=== PATIENT | male | born 1935 | race Caucasian/White ===

== ENCOUNTER 2016-12-05 09:51 | Inpatient (IN) | payer MEDICARE ==
[~2016-12-05] VITALS: Ht 165.1 cm; Wt 79.3 kg
[2016-12-05] MEDS ORDERED: [UNRECOGNIZED DRUG - OTHER] GT (10:44)
[2016-12-05] MEDS ORDERED: ASPIRIN81 M1 GT (10:45)
[2016-12-05] MEDS ORDERED: VITAMIN D-32000 UNI4 GT (10:47)
[2016-12-05] MEDS ORDERED: LOPRESSOR100 M1 GT (10:48)
[2016-12-05] MEDS ORDERED: MULTIVITAMINS1 EAC7 GT (10:49)
[2016-12-05] MEDS ORDERED: TUSSIN100 MG/52 GT (10:50)
[2016-12-05 10:53] LABS: ALB/GLOB RATIO 0.6 (0.8-2.0); ALBUMIN 2.6 g/dl (3.5-5.0); ALKALINE PHOSPHATASE 88 U/L (33-138); ALT/SGPT 19 U/L (12-78); ANION GAP 7 mmol/L (0-20); AST/SGOT 19 U/L (10-40); BILIRUBIN,TOTAL 0.3 mg/dl (0.0-1.5); BLOOD UREA NITROGEN 11 mg/dl (6-24); CHLORIDE 88 mmol/l (96-110); GLUCOSE 103 mg/dL (70-110); POTASSIUM 4.6 mmol/L (3.7-5.1); SODIUM 132 mmol/L (135-145); eGFR VALUE FOR BLACK >90 mL/Min
[2016-12-05] MEDS ORDERED: CETIRIZINE GT (10:53)
[2016-12-05] MEDS ORDERED: STIOLTO RESPIMAT4 GM INH (10:53)
[2016-12-05] MEDS ORDERED: ATORVASTATIN CA20 M1 GT (10:54)
[2016-12-05 10:55] LABS: CARBON DIOXIDE-VENOUS 42 mmol/L (22-32)
[2016-12-05] MEDS ORDERED: PRINIVIL5 M1 GT (10:55)
[2016-12-05] MEDS ORDERED: ACETAMINOPHEN1 EAC4 GT (10:57)
[2016-12-05] MEDS ORDERED: ALBUTEROL2.5 MG/3 M INH (11:07)
[2016-12-05 11:47] LABS: URINE BILIRUBIN NEGATIVE (NEG); URINE BLOOD SMALL (NEG); URINE GLUCOSE (UA) NEGATIVE (NEG); URINE KETONE NEGATIVE (NEG); URINE LEUKOCYTE ESTERASE NEGATIVE (NEG); URINE NITRITE NEGATIVE (NEG); URINE PROTEIN MODERATE (NEG)
[2016-12-05 11:50] LABS: URINE APPEARANCE HAZY; URINE COLOR YELLOW
[2016-12-05 11:53] LABS: BASO % 0.2 % (0-2); EOS % 0.8 % (0-7); EOSINOPHIL ABSOLUTE COUNT 0.1 tho/cmm (0.0-0.7); HCT-HEMATOCRIT 36.1 % (36.0-53.5); HGB-HEMOGLOBIN 11.3 gm/dl (13.5-17.0); IMMATURE GRANULOCYTES ABSOLUTE 0.05 tho/cmm (0-0.03); IMMATURE GRANULOCYTES PERCENT 0.3 % (0-0.3); LYMPH % 7.6 % (20-45); LYMPH ABSOLUTE COUNT 1.2 tho/cmm (0.8-4.5); MCH (MEAN CORPUSCULAR HGB) 29.4 pg (28.0-32.0); MCHC MEAN CORPUSCULAR HGB CONC 31.3 % (32.0-36.0); MCV (MEAN CELL VOLUME) 93.8 fl (82.0-96.0); MEAN PLATELET VOLUME 10.1 cmc (9.4-12.4); MONO % 10.6 % (0-12); MONOCYTE ABSOLUTE COUNT 1.6 tho/cmm (0.0-1.2); NEUTROPHIL ABSOLUTE COUNT 12.4 tho/cmm (1.6-8.0); NEUTROPHIL-AUTOMATED 12.4 tho/cmm (1.6-8.0); NEUTROPHILS % 80.5 % (40-80); PLATELET COUNT 297 tho/cmm (150-450); RED BLOOD COUNT 3.85 mil/cmm (4.40-5.70); RED CELL DISTRIBUTION WIDTH 15.6 % (12.4-16.4); WHITE BLOOD COUNT 15.4 tho/cmm (4.0-10.0)
[2016-12-05 12:00] LABS: URINE AMORPHOUS 3+; URINE EPITHELIAL CELLS RARE /[HPF] (0-10); URINE MUCUS 1+; URINE WBC RARE /[HPF] (0-5)
[2016-12-05 17:55] LABS: ABG CO2 ARTERIAL 39 mmol/L (21-27); ARTERIAL BLD GAS O2 SATURATION 97 % (95-98); ARTERIAL BLOOD GAS PCO2 60 mmHg (32-45); ARTERIAL PO2 97 mmHg (70-100); BICARBONATE 37 mmol/L (21-28); BLOOD GAS BASE EXCESS 11 mM/L (-/+3)
[2016-12-06 06:15] LABS: BASO % 0.2 % (0-2); EOS % 1.3 % (0-7); EOSINOPHIL ABSOLUTE COUNT 0.1 tho/cmm (0.0-0.7); HCT-HEMATOCRIT 34.7 % (36.0-53.5); HGB-HEMOGLOBIN 10.6 gm/dl (13.5-17.0); IMMATURE GRANULOCYTES ABSOLUTE 0.03 tho/cmm (0-0.03); IMMATURE GRANULOCYTES PERCENT 0.3 % (0-0.3); LYMPH % 6.2 % (20-45); LYMPH ABSOLUTE COUNT 0.6 tho/cmm (0.8-4.5); MCH (MEAN CORPUSCULAR HGB) 28.9 pg (28.0-32.0); MCHC MEAN CORPUSCULAR HGB CONC 30.5 % (32.0-36.0); MCV (MEAN CELL VOLUME) 94.6 fl (82.0-96.0); MEAN PLATELET VOLUME 9.4 cmc (9.4-12.4); MONO % 14.4 % (0-12); MONOCYTE ABSOLUTE COUNT 1.5 tho/cmm (0.0-1.2); NEUTROPHIL ABSOLUTE COUNT 7.9 tho/cmm (1.6-8.0); NEUTROPHIL-AUTOMATED 7.9 tho/cmm (1.6-8.0); NEUTROPHILS % 77.6 % (40-80); PLATELET COUNT 248 tho/cmm (150-450); RED BLOOD COUNT 3.67 mil/cmm (4.40-5.70); RED CELL DISTRIBUTION WIDTH 15.5 % (12.4-16.4); WHITE BLOOD COUNT 10.2 tho/cmm (4.0-10.0)
[2016-12-06 06:27] LABS: ANION GAP 8 mmol/L (0-20); BLOOD UREA NITROGEN 9 mg/dl (6-24); CALCIUM 8.6 mg/dl (8.5-10.5); CARBON DIOXIDE-VENOUS 38 mmol/L (22-32); CHLORIDE 93 mmol/l (96-110); GLUCOSE 98 mg/dL (70-110); POTASSIUM 4.2 mmol/L (3.7-5.1); SODIUM 135 mmol/L (135-145); eGFR VALUE FOR BLACK >90 mL/Min
[2016-12-06 17:20] LABS: ABG CO2 ARTERIAL 33 mmol/L (21-27); ARTERIAL BLD GAS O2 SATURATION 97 % (95-98); ARTERIAL PO2 100 mmHg (70-100); BICARBONATE 36 mmol/L (21-28); BLOOD GAS BASE EXCESS 7 mM/L (-/+3)
[2016-12-06 17:22] LABS: ARTERIAL BLOOD GAS PCO2 74 mmHg (32-45)
[2016-12-06 20:10] LABS: ABG CO2 ARTERIAL 35 mmol/L (21-27); ARTERIAL BLD GAS O2 SATURATION 91 % (95-98); BICARBONATE 38 mmol/L (21-28); BLOOD GAS BASE EXCESS 9 mM/L (-/+3)
[2016-12-06 20:14] LABS: ARTERIAL PO2 69 mmHg (70-100)
[2016-12-06 20:19] LABS: ARTERIAL BLOOD GAS PCO2 79 mmHg (32-45)
[2016-12-07 04:13] LABS: ARTERIAL BLD GAS O2 SATURATION 96 % (95-98); BICARBONATE 39 mmol/L (21-28); BLOOD GAS BASE EXCESS 10 mM/L (-/+3); PH 7.28 Units (7.35-7.45)
[2016-12-07 04:15] LABS: ARTERIAL PO2 89 mmHg (70-100)
[2016-12-07 04:18] LABS: ABG CO2 ARTERIAL 41 mmol/L (21-27); ARTERIAL BLOOD GAS PCO2 85 mmHg (32-45)
[2016-12-07 05:25] LABS: BASO % 0.4 % (0-2); EOS % 1.1 % (0-7); EOSINOPHIL ABSOLUTE COUNT 0.1 tho/cmm (0.0-0.7); HCT-HEMATOCRIT 32.9 % (36.0-53.5); IMMATURE GRANULOCYTES ABSOLUTE 0.02 tho/cmm (0-0.03); IMMATURE GRANULOCYTES PERCENT 0.2 % (0-0.3); LYMPH % 6.5 % (20-45); LYMPH ABSOLUTE COUNT 0.5 tho/cmm (0.8-4.5); MCH (MEAN CORPUSCULAR HGB) 29.1 pg (28.0-32.0); MCHC MEAN CORPUSCULAR HGB CONC 30.4 % (32.0-36.0); MCV (MEAN CELL VOLUME) 95.6 fl (82.0-96.0); MEAN PLATELET VOLUME 9.5 cmc (9.4-12.4); MONO % 17.3 % (0-12); MONOCYTE ABSOLUTE COUNT 1.4 tho/cmm (0.0-1.2); NEUTROPHIL ABSOLUTE COUNT 6.2 tho/cmm (1.6-8.0); NEUTROPHIL-AUTOMATED 6.2 tho/cmm (1.6-8.0); NEUTROPHILS % 74.5 % (40-80); PLATELET COUNT 278 tho/cmm (150-450); RED BLOOD COUNT 3.44 mil/cmm (4.40-5.70); RED CELL DISTRIBUTION WIDTH 15.5 % (12.4-16.4); WHITE BLOOD COUNT 8.3 tho/cmm (4.0-10.0)
[2016-12-07 05:43] LABS: ANION GAP 6 mmol/L (0-20); BLOOD UREA NITROGEN 10 mg/dl (6-24); C-REACTIVE PROTEIN 5.3 mg/dl (0-0.9); CALCIUM 8.6 mg/dl (8.5-10.5); CARBON DIOXIDE-VENOUS 40 mmol/L (22-32); CHLORIDE 92 mmol/l (96-110); CREATININE 0.32 mg/dl (0.60-1.30); GLUCOSE 99 mg/dL (70-110); POTASSIUM 4.2 mmol/L (3.7-5.1); SODIUM 134 mmol/L (135-145); eGFR VALUE FOR BLACK >90 mL/Min
[2016-12-07 05:56] LABS: PROCALCITONIN <0.05 ng/ml (0.05-0.09)
[2016-12-07 07:09] LABS: ARTERIAL BLD GAS O2 SATURATION 97 % (95-98); ARTERIAL PO2 82 mmHg (70-100); BICARBONATE 38 mmol/L (21-28); BLOOD GAS BASE EXCESS 10 mM/L (-/+3); PH 7.32 Units (7.35-7.45)
[2016-12-07 07:12] LABS: ABG CO2 ARTERIAL 40 mmol/L (21-27); ARTERIAL BLOOD GAS PCO2 75 mmHg (32-45)
[2016-12-07 12:53] LABS: INR 1.1 INR (0.9-1.1); PROTHROMBIN TIME 12.5 SECONDS (9.0-13.6)
[2016-12-07 16:49] LABS: ABG CO2 ARTERIAL 38 mmol/L (21-27); ARTERIAL BLD GAS O2 SATURATION 99 % (95-98); ARTERIAL BLOOD GAS PCO2 47 mmHg (32-45); ARTERIAL PO2 94 mmHg (70-100); BICARBONATE 37 mmol/L (21-28); BLOOD GAS BASE EXCESS 12 mM/L (-/+3); PH 7.51 Units (7.35-7.45)
[2016-12-08 00:38] LABS: BASO % 0.3 % (0-2); EOS % 1.5 % (0-7); EOSINOPHIL ABSOLUTE COUNT 0.1 tho/cmm (0.0-0.7); HCT-HEMATOCRIT 27.8 % (36.0-53.5); HGB-HEMOGLOBIN 8.6 gm/dl (13.5-17.0); IMMATURE GRANULOCYTES ABSOLUTE 0.01 tho/cmm (0-0.03); IMMATURE GRANULOCYTES PERCENT 0.2 % (0-0.3); LYMPH % 11.1 % (20-45); LYMPH ABSOLUTE COUNT 0.7 tho/cmm (0.8-4.5); MCH (MEAN CORPUSCULAR HGB) 29.3 pg (28.0-32.0); MCHC MEAN CORPUSCULAR HGB CONC 30.9 % (32.0-36.0); MCV (MEAN CELL VOLUME) 94.6 fl (82.0-96.0); MEAN PLATELET VOLUME 9.1 cmc (9.4-12.4); MONO % 19.7 % (0-12); MONOCYTE ABSOLUTE COUNT 1.3 tho/cmm (0.0-1.2); NEUTROPHIL ABSOLUTE COUNT 4.3 tho/cmm (1.6-8.0); NEUTROPHIL-AUTOMATED 4.3 tho/cmm (1.6-8.0); NEUTROPHILS % 67.2 % (40-80); PLATELET COUNT 237 tho/cmm (150-450); RED BLOOD COUNT 2.94 mil/cmm (4.40-5.70); RED CELL DISTRIBUTION WIDTH 15.6 % (12.4-16.4); WHITE BLOOD COUNT 6.5 tho/cmm (4.0-10.0)
[2016-12-08 00:51] LABS: ANION GAP 8 mmol/L (0-20); BLOOD UREA NITROGEN 10 mg/dl (6-24); CARBON DIOXIDE-VENOUS 37 mmol/L (22-32); CHLORIDE 97 mmol/l (96-110); CREATININE 0.44 mg/dl (0.60-1.30); POTASSIUM 4.4 mmol/L (3.7-5.1); SODIUM 138 mmol/L (135-145); eGFR VALUE FOR BLACK >90 mL/Min
[2016-12-08 00:55] LABS: GLUCOSE 68 mg/dL (70-110)
[2016-12-08 04:11] LABS: BASO % 0.3 % (0-2); EOS % 1.8 % (0-7); EOSINOPHIL ABSOLUTE COUNT 0.1 tho/cmm (0.0-0.7); HCT-HEMATOCRIT 29.5 % (36.0-53.5); IMMATURE GRANULOCYTES ABSOLUTE 0.01 tho/cmm (0-0.03); IMMATURE GRANULOCYTES PERCENT 0.1 % (0-0.3); LYMPH % 15.4 % (20-45); MCH (MEAN CORPUSCULAR HGB) 28.8 pg (28.0-32.0); MCHC MEAN CORPUSCULAR HGB CONC 30.5 % (32.0-36.0); MCV (MEAN CELL VOLUME) 94.2 fl (82.0-96.0); MEAN PLATELET VOLUME 9.1 cmc (9.4-12.4); MONO % 14.5 % (0-12); NEUTROPHIL ABSOLUTE COUNT 4.6 tho/cmm (1.6-8.0); NEUTROPHIL-AUTOMATED 4.6 tho/cmm (1.6-8.0); NEUTROPHILS % 67.9 % (40-80); PLATELET COUNT 248 tho/cmm (150-450); RED BLOOD COUNT 3.13 mil/cmm (4.40-5.70); RED CELL DISTRIBUTION WIDTH 15.7 % (12.4-16.4); WHITE BLOOD COUNT 6.7 tho/cmm (4.0-10.0)
[2016-12-08 04:23] LABS: ANION GAP 7 mmol/L (0-20); BLOOD UREA NITROGEN 9 mg/dl (6-24); CALCIUM 8.2 mg/dl (8.5-10.5); CARBON DIOXIDE-VENOUS 36 mmol/L (22-32); CHLORIDE 99 mmol/l (96-110); CREATININE 0.45 mg/dl (0.60-1.30); GLUCOSE 82 mg/dL (70-110); POTASSIUM 4.2 mmol/L (3.7-5.1); SODIUM 138 mmol/L (135-145); eGFR VALUE FOR BLACK >90 mL/Min
[2016-12-08 04:24] LABS: INR 1.1 INR (0.9-1.1); PROTHROMBIN TIME 12.7 SECONDS (9.0-13.6)
[2016-12-08 04:27] LABS: ABG CO2 ARTERIAL 35 mmol/L (21-27); ARTERIAL BLD GAS O2 SATURATION 99 % (95-98); ARTERIAL BLOOD GAS PCO2 56 mmHg (32-45); BICARBONATE 34 mmol/L (21-28); BLOOD GAS BASE EXCESS 8 mM/L (-/+3)
[2016-12-08 04:28] LABS: ARTERIAL PO2 154 mmHg (70-100)
[2016-12-08 04:48] LABS: PROCALCITONIN 0.08 ng/ml (0.05-0.09)
[2016-12-09 01:25] LABS: URINE BILIRUBIN NEGATIVE (NEG); URINE BLOOD NEGATIVE (NEG); URINE GLUCOSE (UA) NEGATIVE (NEG); URINE KETONE NEGATIVE (NEG); URINE LEUKOCYTE ESTERASE NEGATIVE (NEG); URINE NITRITE NEGATIVE (NEG); URINE PROTEIN NEGATIVE (NEG); URINE SPECIFIC GRAVITY 1.015 (1.003-1.030)
[2016-12-09 01:27] LABS: URINE APPEARANCE CLEAR; URINE COLOR YELLOW
[2016-12-09 05:04] LABS: ABG CO2 ARTERIAL 34 mmol/L (21-27); ARTERIAL BLD GAS O2 SATURATION 98 % (95-98); ARTERIAL BLOOD GAS PCO2 44 mmHg (32-45); ARTERIAL PO2 91 mmHg (70-100); BICARBONATE 33 mmol/L (21-28); BLOOD GAS BASE EXCESS 8 mM/L (-/+3); PH 7.48 Units (7.35-7.45)
[2016-12-09 05:15] LABS: BASO % 0.3 % (0-2); EOS % 1.8 % (0-7); EOSINOPHIL ABSOLUTE COUNT 0.2 tho/cmm (0.0-0.7); HCT-HEMATOCRIT 29.1 % (36.0-53.5); HGB-HEMOGLOBIN 9.2 gm/dl (13.5-17.0); IMMATURE GRANULOCYTES ABSOLUTE 0.02 tho/cmm (0-0.03); IMMATURE GRANULOCYTES PERCENT 0.2 % (0-0.3); LYMPH % 9.2 % (20-45); LYMPH ABSOLUTE COUNT 0.9 tho/cmm (0.8-4.5); MCH (MEAN CORPUSCULAR HGB) 29.1 pg (28.0-32.0); MCHC MEAN CORPUSCULAR HGB CONC 31.6 % (32.0-36.0); MCV (MEAN CELL VOLUME) 92.1 fl (82.0-96.0); MEAN PLATELET VOLUME 9.3 cmc (9.4-12.4); MONO % 9.5 % (0-12); NEUTROPHIL ABSOLUTE COUNT 7.9 tho/cmm (1.6-8.0); NEUTROPHIL-AUTOMATED 7.9 tho/cmm (1.6-8.0); PLATELET COUNT 283 tho/cmm (150-450); RED BLOOD COUNT 3.16 mil/cmm (4.40-5.70); RED CELL DISTRIBUTION WIDTH 16.1 % (12.4-16.4)
[2016-12-09 05:17] LABS: ALB/GLOB RATIO 0.5 (0.8-2.0); ALKALINE PHOSPHATASE 63 U/L (33-138); ALT/SGPT 13 U/L (12-78); ANION GAP 10 mmol/L (0-20); AST/SGOT 11 U/L (10-40); BILIRUBIN,TOTAL 0.3 mg/dl (0.0-1.5); BLOOD UREA NITROGEN 11 mg/dl (6-24); CALCIUM 8.2 mg/dl (8.5-10.5); CARBON DIOXIDE-VENOUS 34 mmol/L (22-32); CHLORIDE 97 mmol/l (96-110); CREATININE 0.56 mg/dl (0.60-1.30); MAGNESIUM 1.9 mg/dl (1.8-2.6); POTASSIUM 3.6 mmol/L (3.7-5.1); SODIUM 137 mmol/L (135-145); eGFR VALUE FOR BLACK >90 mL/Min
[2016-12-09 05:28] LABS: GLUCOSE 131 mg/dL (70-110)
[2016-12-10 05:42] LABS: MAGNESIUM 1.7 mg/dl (1.8-2.6)
[2016-12-10 07:39] LABS: ANION GAP 12 mmol/L (0-20); BLOOD UREA NITROGEN 10 mg/dl (6-24); CALCIUM 8.1 mg/dl (8.5-10.5); CARBON DIOXIDE-VENOUS 30 mmol/L (22-32); CHLORIDE 99 mmol/l (96-110); CREATININE 0.52 mg/dl (0.60-1.30); GLUCOSE 106 mg/dL (70-110); POTASSIUM 3.6 mmol/L (3.7-5.1); SODIUM 137 mmol/L (135-145); eGFR VALUE FOR BLACK >90 mL/Min
[2016-12-11 04:21] LABS: BASO % 0.5 % (0-2); EOSINOPHIL ABSOLUTE COUNT 0.2 tho/cmm (0.0-0.7); HGB-HEMOGLOBIN 7.7 gm/dl (13.5-17.0); IMMATURE GRANULOCYTES ABSOLUTE 0.01 tho/cmm (0-0.03); IMMATURE GRANULOCYTES PERCENT 0.2 % (0-0.3); LYMPH % 9.6 % (20-45); LYMPH ABSOLUTE COUNT 0.6 tho/cmm (0.8-4.5); MCH (MEAN CORPUSCULAR HGB) 29.1 pg (28.0-32.0); MCHC MEAN CORPUSCULAR HGB CONC 32.4 % (32.0-36.0); MCV (MEAN CELL VOLUME) 89.8 fl (82.0-96.0); MEAN PLATELET VOLUME 8.9 cmc (9.4-12.4); MONO % 12.9 % (0-12); MONOCYTE ABSOLUTE COUNT 0.8 tho/cmm (0.0-1.2); NEUTROPHIL ABSOLUTE COUNT 4.7 tho/cmm (1.6-8.0); NEUTROPHIL-AUTOMATED 4.7 tho/cmm (1.6-8.0); NEUTROPHILS % 73.8 % (40-80); PLATELET COUNT 241 tho/cmm (150-450); RED BLOOD COUNT 2.65 mil/cmm (4.40-5.70); RED CELL DISTRIBUTION WIDTH 16.3 % (12.4-16.4); WHITE BLOOD COUNT 6.4 tho/cmm (4.0-10.0)
[2016-12-11 04:23] LABS: HCT-HEMATOCRIT 23.8 % (36.0-53.5)
[2016-12-11 04:32] LABS: ANION GAP 11 mmol/L (0-20); BLOOD UREA NITROGEN 8 mg/dl (6-24); CALCIUM 7.9 mg/dl (8.5-10.5); CARBON DIOXIDE-VENOUS 29 mmol/L (22-32); CHLORIDE 103 mmol/l (96-110); CREATININE 0.52 mg/dl (0.60-1.30); GLUCOSE 78 mg/dL (70-110); MAGNESIUM 1.8 mg/dl (1.8-2.6); POTASSIUM 3.6 mmol/L (3.7-5.1); SODIUM 139 mmol/L (135-145); eGFR VALUE FOR BLACK >90 mL/Min
[2016-12-12 05:46] LABS: BASO % 0.5 % (0-2); EOS % 3.4 % (0-7); EOSINOPHIL ABSOLUTE COUNT 0.2 tho/cmm (0.0-0.7); HGB-HEMOGLOBIN 8.3 gm/dl (13.5-17.0); IMMATURE GRANULOCYTES ABSOLUTE 0.01 tho/cmm (0-0.03); IMMATURE GRANULOCYTES PERCENT 0.2 % (0-0.3); LYMPH % 9.4 % (20-45); LYMPH ABSOLUTE COUNT 0.6 tho/cmm (0.8-4.5); MCH (MEAN CORPUSCULAR HGB) 28.6 pg (28.0-32.0); MCHC MEAN CORPUSCULAR HGB CONC 31.9 % (32.0-36.0); MCV (MEAN CELL VOLUME) 89.7 fl (82.0-96.0); MEAN PLATELET VOLUME 9.2 cmc (9.4-12.4); MONOCYTE ABSOLUTE COUNT 0.8 tho/cmm (0.0-1.2); NEUTROPHIL ABSOLUTE COUNT 4.9 tho/cmm (1.6-8.0); NEUTROPHIL-AUTOMATED 4.9 tho/cmm (1.6-8.0); NEUTROPHILS % 74.5 % (40-80); PLATELET COUNT 286 tho/cmm (150-450); RED CELL DISTRIBUTION WIDTH 16.2 % (12.4-16.4); WHITE BLOOD COUNT 6.5 tho/cmm (4.0-10.0)
[2016-12-13 05:22] LABS: ALB/GLOB RATIO 0.5 (0.8-2.0); ALKALINE PHOSPHATASE 59 U/L (33-138); ALT/SGPT 11 U/L (12-78); ANION GAP 10 mmol/L (0-20); AST/SGOT 13 U/L (10-40); BILIRUBIN,TOTAL 0.2 mg/dl (0.0-1.5); BLOOD UREA NITROGEN 8 mg/dl (6-24); CALCIUM 8.1 mg/dl (8.5-10.5); CARBON DIOXIDE-VENOUS 26 mmol/L (22-32); CHLORIDE 106 mmol/l (96-110); CREATININE 0.42 mg/dl (0.60-1.30); GLUCOSE 110 mg/dL (70-110); MAGNESIUM 1.9 mg/dl (1.8-2.6); PHOSPHOROUS 2.7 mg/dl (2.5-4.9); POTASSIUM 3.3 mmol/L (3.7-5.1); PREALBUMIN 8.3 mg/dl (20.0-40.0); SODIUM 139 mmol/L (135-145); eGFR VALUE FOR BLACK >90 mL/Min
[2016-12-13 10:47] LABS: BASO % 0.3 % (0-2); EOS % 2.7 % (0-7); EOSINOPHIL ABSOLUTE COUNT 0.2 tho/cmm (0.0-0.7); HCT-HEMATOCRIT 31.6 % (36.0-53.5); IMMATURE GRANULOCYTES ABSOLUTE 0.01 tho/cmm (0-0.03); IMMATURE GRANULOCYTES PERCENT 0.2 % (0-0.3); LYMPH % 8.7 % (20-45); LYMPH ABSOLUTE COUNT 0.6 tho/cmm (0.8-4.5); MCH (MEAN CORPUSCULAR HGB) 28.7 pg (28.0-32.0); MCHC MEAN CORPUSCULAR HGB CONC 31.6 % (32.0-36.0); MCV (MEAN CELL VOLUME) 90.5 fl (82.0-96.0); MEAN PLATELET VOLUME 9.3 cmc (9.4-12.4); MONO % 8.4 % (0-12); MONOCYTE ABSOLUTE COUNT 0.6 tho/cmm (0.0-1.2); NEUTROPHIL ABSOLUTE COUNT 5.2 tho/cmm (1.6-8.0); NEUTROPHIL-AUTOMATED 5.2 tho/cmm (1.6-8.0); NEUTROPHILS % 79.7 % (40-80); PLATELET COUNT 364 tho/cmm (150-450); RED BLOOD COUNT 3.49 mil/cmm (4.40-5.70); RED CELL DISTRIBUTION WIDTH 16.2 % (12.4-16.4); WHITE BLOOD COUNT 6.6 tho/cmm (4.0-10.0)
[2016-12-13 10:49] LABS: INR 1.1 INR (0.9-1.1)
[2016-12-13 11:48] LABS: URINE APPEARANCE HAZY; URINE BILIRUBIN NEGATIVE (NEG); URINE BLOOD MODERATE (NEG); URINE COLOR YELLOW; URINE GLUCOSE (UA) NEGATIVE (NEG); URINE KETONE NEGATIVE (NEG); URINE LEUKOCYTE ESTERASE POSITIVE (NEG); URINE NITRITE NEGATIVE (NEG); URINE PROTEIN MODERATE (NEG); URINE SPECIFIC GRAVITY 1.025 (1.003-1.030)
[2016-12-13 12:03] LABS: URINE WBC 15-20 /[HPF] (0-5)
[2016-12-13 12:05] LABS: URINE MUCUS 1+
[2016-12-13 13:25] LABS: BASO % 0.2 % (0-2); EOS % 2.3 % (0-7); EOSINOPHIL ABSOLUTE COUNT 0.2 tho/cmm (0.0-0.7); HCT-HEMATOCRIT 30.3 % (36.0-53.5); HGB-HEMOGLOBIN 9.9 gm/dl (13.5-17.0); IMMATURE GRANULOCYTES ABSOLUTE 0.02 tho/cmm (0-0.03); IMMATURE GRANULOCYTES PERCENT 0.2 % (0-0.3); LYMPH ABSOLUTE COUNT 0.8 tho/cmm (0.8-4.5); MCH (MEAN CORPUSCULAR HGB) 29.1 pg (28.0-32.0); MCHC MEAN CORPUSCULAR HGB CONC 32.7 % (32.0-36.0); MCV (MEAN CELL VOLUME) 89.1 fl (82.0-96.0); MEAN PLATELET VOLUME 9.4 cmc (9.4-12.4); MONO % 9.4 % (0-12); MONOCYTE ABSOLUTE COUNT 0.8 tho/cmm (0.0-1.2); NEUTROPHILS % 78.9 % (40-80); PLATELET COUNT 406 tho/cmm (150-450); WHITE BLOOD COUNT 8.9 tho/cmm (4.0-10.0)
[2016-12-13 13:27] LABS: INR 1.1 INR (0.9-1.1)
[2016-12-13 13:28] LABS: ANION GAP 10 mmol/L (0-20); BLOOD UREA NITROGEN 10 mg/dl (6-24); CALCIUM 8.5 mg/dl (8.5-10.5); CARBON DIOXIDE-VENOUS 25 mmol/L (22-32); CHLORIDE 104 mmol/l (96-110); CREATININE 0.55 mg/dl (0.60-1.30); GLUCOSE 135 mg/dL (70-110); POTASSIUM 3.4 mmol/L (3.7-5.1); SODIUM 136 mmol/L (135-145); eGFR VALUE FOR BLACK >90 mL/Min
[2016-12-13 13:30] LABS: PROCALCITONIN 0.09 ng/ml (0.05-0.09)
[2016-12-14 04:59] LABS: ANION GAP 8 mmol/L (0-20); BLOOD UREA NITROGEN 11 mg/dl (6-24); CALCIUM 8.1 mg/dl (8.5-10.5); CARBON DIOXIDE-VENOUS 26 mmol/L (22-32); CHLORIDE 106 mmol/l (96-110); CREATININE 0.45 mg/dl (0.60-1.30); GLUCOSE 120 mg/dL (70-110); POTASSIUM 3.4 mmol/L (3.7-5.1); SODIUM 137 mmol/L (135-145); eGFR VALUE FOR BLACK >90 mL/Min
[2016-12-15 05:34] LABS: ANION GAP 12 mmol/L (0-20); BLOOD UREA NITROGEN 13 mg/dl (6-24); CARBON DIOXIDE-VENOUS 28 mmol/L (22-32); CHLORIDE 104 mmol/l (96-110); CREATININE 0.41 mg/dl (0.60-1.30); GLUCOSE 101 mg/dL (70-110); POTASSIUM 3.6 mmol/L (3.7-5.1); SODIUM 140 mmol/L (135-145); eGFR VALUE FOR BLACK >90 mL/Min
[2016-12-16 05:40] LABS: ANION GAP 11 mmol/L (0-20); BLOOD UREA NITROGEN 13 mg/dl (6-24); CALCIUM 7.7 mg/dl (8.5-10.5); CARBON DIOXIDE-VENOUS 28 mmol/L (22-32); CHLORIDE 106 mmol/l (96-110); CREATININE 0.42 mg/dl (0.60-1.30); GLUCOSE 82 mg/dL (70-110); MAGNESIUM 1.7 mg/dl (1.8-2.6); PHOSPHOROUS 3.3 mg/dl (2.5-4.9); POTASSIUM 3.6 mmol/L (3.7-5.1); SODIUM 141 mmol/L (135-145); eGFR VALUE FOR BLACK >90 mL/Min
[2016-12-17 04:20] LABS: ABG CO2 ARTERIAL 27 mmol/L (21-27); ARTERIAL BLD GAS O2 SATURATION 96 % (95-98); ARTERIAL BLOOD GAS PCO2 38 mmHg (32-45); ARTERIAL PO2 86 mmHg (70-100); BICARBONATE 26 mmol/L (21-28); BLOOD GAS BASE EXCESS 3 mM/L (-/+3); PH 7.45 Units (7.35-7.45)
[2016-12-17 05:47] LABS: BASO % 0.9 % (0-2); BASO ABSOLUTE COUNT 0.1 tho/cmm (0.0-0.2); EOS % 7.4 % (0-7); EOSINOPHIL ABSOLUTE COUNT 0.5 tho/cmm (0.0-0.7); HCT-HEMATOCRIT 26.3 % (36.0-53.5); LYMPH % 16.1 % (20-45); LYMPH ABSOLUTE COUNT 1.1 tho/cmm (0.8-4.5); MCH (MEAN CORPUSCULAR HGB) 28.2 pg (28.0-32.0); MCHC MEAN CORPUSCULAR HGB CONC 30.4 % (32.0-36.0); MCV (MEAN CELL VOLUME) 92.6 fl (82.0-96.0); MEAN PLATELET VOLUME 9.3 cmc (9.4-12.4); MONO % 14.7 % (0-12); NEUTROPHILS % 60.9 % (40-80); PLATELET COUNT 404 tho/cmm (150-450); RED BLOOD COUNT 2.84 mil/cmm (4.40-5.70); RED CELL DISTRIBUTION WIDTH 15.8 % (12.4-16.4); WHITE BLOOD COUNT 6.6 tho/cmm (4.0-10.0)
[2016-12-17 05:53] LABS: ANION GAP 10 mmol/L (0-20); BLOOD UREA NITROGEN 13 mg/dl (6-24); CARBON DIOXIDE-VENOUS 28 mmol/L (22-32); CHLORIDE 104 mmol/l (96-110); CREATININE 0.39 mg/dl (0.60-1.30); GLUCOSE 109 mg/dL (70-110); POTASSIUM 3.3 mmol/L (3.7-5.1); SODIUM 139 mmol/L (135-145); eGFR VALUE FOR BLACK >90 mL/Min
[2016-12-18 05:46] LABS: ANION GAP 9 mmol/L (0-20); BLOOD UREA NITROGEN 15 mg/dl (6-24); CALCIUM 8.1 mg/dl (8.5-10.5); CARBON DIOXIDE-VENOUS 29 mmol/L (22-32); CHLORIDE 102 mmol/l (96-110); CREATININE 0.48 mg/dl (0.60-1.30); GLUCOSE 115 mg/dL (70-110); POTASSIUM 3.1 mmol/L (3.7-5.1); SODIUM 137 mmol/L (135-145); eGFR VALUE FOR BLACK >90 mL/Min
[2016-12-19 04:53] LABS: BASO % 0.6 % (0-2); EOS % 6.1 % (0-7); EOSINOPHIL ABSOLUTE COUNT 0.4 tho/cmm (0.0-0.7); HCT-HEMATOCRIT 25.9 % (36.0-53.5); HGB-HEMOGLOBIN 8.3 gm/dl (13.5-17.0); IMMATURE GRANULOCYTES ABSOLUTE 0.02 tho/cmm (0-0.03); IMMATURE GRANULOCYTES PERCENT 0.3 % (0-0.3); LYMPH % 17.2 % (20-45); LYMPH ABSOLUTE COUNT 1.1 tho/cmm (0.8-4.5); MCH (MEAN CORPUSCULAR HGB) 28.9 pg (28.0-32.0); MCV (MEAN CELL VOLUME) 90.2 fl (82.0-96.0); MONO % 15.9 % (0-12); NEUTROPHIL ABSOLUTE COUNT 3.7 tho/cmm (1.6-8.0); NEUTROPHIL-AUTOMATED 3.7 tho/cmm (1.6-8.0); NEUTROPHILS % 59.9 % (40-80); PLATELET COUNT 361 tho/cmm (150-450); RED BLOOD COUNT 2.87 mil/cmm (4.40-5.70); WHITE BLOOD COUNT 6.2 tho/cmm (4.0-10.0)
[2016-12-19 05:07] LABS: ANION GAP 7 mmol/L (0-20); BLOOD UREA NITROGEN 19 mg/dl (6-24); CALCIUM 8.3 mg/dl (8.5-10.5); CARBON DIOXIDE-VENOUS 31 mmol/L (22-32); CHLORIDE 102 mmol/l (96-110); CREATININE 0.52 mg/dl (0.60-1.30); GLUCOSE 130 mg/dL (70-110); POTASSIUM 3.5 mmol/L (3.7-5.1); SODIUM 136 mmol/L (135-145); eGFR VALUE FOR BLACK >90 mL/Min
[2016-12-20 05:35] LABS: ANION GAP 9 mmol/L (0-20); BLOOD UREA NITROGEN 18 mg/dl (6-24); CALCIUM 8.3 mg/dl (8.5-10.5); CARBON DIOXIDE-VENOUS 30 mmol/L (22-32); CHLORIDE 103 mmol/l (96-110); CREATININE 0.54 mg/dl (0.60-1.30); GLUCOSE 98 mg/dL (70-110); SODIUM 138 mmol/L (135-145); eGFR VALUE FOR BLACK >90 mL/Min
[2016-12-21 04:17] LABS: ABG CO2 ARTERIAL 31 mmol/L (21-27); ARTERIAL BLD GAS O2 SATURATION 96 % (95-98); ARTERIAL BLOOD GAS PCO2 41 mmHg (32-45); ARTERIAL PO2 80 mmHg (70-100); BICARBONATE 30 mmol/L (21-28); BLOOD GAS BASE EXCESS 6 mM/L (-/+3); PH 7.48 Units (7.35-7.45)
[2016-12-21 05:28] LABS: BASO ABSOLUTE COUNT 0.1 tho/cmm (0.0-0.2); EOS % 4.2 % (0-7); EOSINOPHIL ABSOLUTE COUNT 0.3 tho/cmm (0.0-0.7); HCT-HEMATOCRIT 26.2 % (36.0-53.5); HGB-HEMOGLOBIN 8.2 gm/dl (13.5-17.0); IMMATURE GRANULOCYTES ABSOLUTE 0.02 tho/cmm (0-0.03); IMMATURE GRANULOCYTES PERCENT 0.3 % (0-0.3); LYMPH % 15.9 % (20-45); LYMPH ABSOLUTE COUNT 1.1 tho/cmm (0.8-4.5); MCH (MEAN CORPUSCULAR HGB) 28.6 pg (28.0-32.0); MCHC MEAN CORPUSCULAR HGB CONC 31.3 % (32.0-36.0); MCV (MEAN CELL VOLUME) 91.3 fl (82.0-96.0); MEAN PLATELET VOLUME 9.3 cmc (9.4-12.4); MONO % 14.2 % (0-12); NEUTROPHIL ABSOLUTE COUNT 4.5 tho/cmm (1.6-8.0); NEUTROPHIL-AUTOMATED 4.5 tho/cmm (1.6-8.0); NEUTROPHILS % 64.4 % (40-80); PLATELET COUNT 385 tho/cmm (150-450); RED BLOOD COUNT 2.87 mil/cmm (4.40-5.70); RED CELL DISTRIBUTION WIDTH 15.8 % (12.4-16.4); WHITE BLOOD COUNT 6.9 tho/cmm (4.0-10.0)
[2016-12-21 05:45] LABS: PROCALCITONIN <0.05 ng/ml (0.05-0.09)
[2016-12-21 05:48] LABS: ANION GAP 9 mmol/L (0-20); BLOOD UREA NITROGEN 16 mg/dl (6-24); CALCIUM 8.4 mg/dl (8.5-10.5); CARBON DIOXIDE-VENOUS 31 mmol/L (22-32); CHLORIDE 104 mmol/l (96-110); CREATININE 0.54 mg/dl (0.60-1.30); GLUCOSE 104 mg/dL (70-110); POTASSIUM 4.1 mmol/L (3.7-5.1); SODIUM 140 mmol/L (135-145); eGFR VALUE FOR BLACK >90 mL/Min
== END 2016-12-21 12:45 | DRG 4 ==
LOC: EDMED 09:51 → EMR2 14:19 → 5WE 14:19 → CCU 14:19 → 5WE 14:35 → CCU 12-06 18:10
PROVIDERS: Hospitalist; Internal Medicine; Internal Medicine Critical Care Medicine; Internal Medicine Pulmonary Disease; Nurse Practitioner; Physician Assistant; Registered Nurse; ADMIT Family Medicine
PROC: 0B110F4 Bypass Trachea to Cutaneous with Tracheostomy Device, Open Approach (ICD-10-PCS; principal; 2016-12-07)
PROC: 5A1955Z Respiratory Ventilation, Greater than 96 Consecutive Hours (ICD-10-PCS; 2016-12-07)
PROC: 02HV33Z Insertion of Infusion Device into Superior Vena Cava, Percutaneous Approach (ICD-10-PCS; 2016-12-07)
PROC: B548ZZA Ultrasonography of Superior Vena Cava, Guidance (ICD-10-PCS; 2016-12-07)
PROC: 0B9F8ZX Drainage of Right Lower Lung Lobe, Via Natural or Artificial Opening Endoscopic, Diagnostic (ICD-10-PCS; 2016-12-18)
DX: J96.21 Acute and chronic respiratory failure with hypoxia (principal); J18.9 Pneumonia, unspecified organism; E44.0 Moderate protein-calorie malnutrition; K56.7 Ileus, unspecified; J44.0 Chronic obstructive pulmonary disease with (acute) lower respiratory infection; Z99.81 Dependence on supplemental oxygen; I47.1 Supraventricular tachycardia; I80.8 Phlebitis and thrombophlebitis of other sites; J44.1 Chronic obstructive pulmonary disease with (acute) exacerbation; I25.10 Atherosclerotic heart disease of native coronary artery without angina pectoris; Z95.1 Presence of aortocoronary bypass graft; E78.5 Hyperlipidemia, unspecified; I10 Essential (primary) hypertension; E83.51 Hypocalcemia; E87.79 Other fluid overload; D64.9 Anemia, unspecified; N50.89 Other specified disorders of the male genital organs; N44.2 Benign cyst of testis; C02.9 Malignant neoplasm of tongue, unspecified; Z92.3 Personal history of irradiation; N32.89 Other specified disorders of bladder; Z51.5 Encounter for palliative care; E87.6 Hypokalemia; Z87.891 Personal history of nicotine dependence
CPT/HCPCS: C1751; C8929; C9113; J0282; J0456; J0696; J1200; J1650; J1940; J2212; J2250; J2270; J2405; J2543; J3370; J3475; J3480; J7030; J7050; J7999; Q9967